=== PATIENT | female | born 1960 | race Caucasian/White ===

== ENCOUNTER → 2016-12-28 | Outpatient (CLI) | payer BC ==
[~2016-12-28] MED LIST: BENGAY ULTRA S113 GM TP; CIPRO500 MG PO; DOCUSATE SODIU100 MG PO; EXCEDRIN EXTRA1 EACH PO; HYDROCODON-ACE1 EAC7 PO; MACRODANTIN50 M1 PO; OXYCODONE HCL5 MG PO; TAMSULOSIN HCL0.4 MG PO; URIBEL CAPSULE1 EACH PO
[2016-12-28 09:19] LABS: HEMATOCRIT 41.5 % (36.0-46.0); MCH 28.2 PG (29.0-34.0); MCHC 32.8 G/DL (30.0-36.0); MCV 86.1 FL (83-99); MEAN PLAT.VOLUME 10.3 uM^3 (9.5-12.4); PLATELET COUNT 251 K/uL (156-360); RBC DIS.WIDTH-CV 13.2 % (11.8-14.6); RBC DIS.WIDTH-SD 41.1 % (39-53); RED BLOOD COUNT 4.82 M/uL (3.80-5.20); WHITE BLOOD COUNT 5.1 K/uL (4.1-10.2)
[2016-12-28 09:37] LABS: INTER. NORMALIZED RATIO 1.1; PROTHROMBIN TIME 10.7 (9.2-11.2); PTT 26.9 (25-32)
== END | disposition home or self-care (01) ==
LOC: OPR 08:18 → EDSTATUS 09:00
PROVIDERS: Urology
PROC: 0TB03ZX Excision of Right Kidney, Percutaneous Approach, Diagnostic (ICD-10-PCS; principal; 2016-12-28)
DX: C64.1 Malignant neoplasm of right kidney, except renal pelvis (principal); Z80.0 Family history of malignant neoplasm of digestive organs
CPT/HCPCS: 77012; 85027; 85610; 85730; 88305; J2405; J3010

== ENCOUNTER 2017-03-19 05:37 | Inpatient (IN) | payer BC ==
[~2017-03-19] VITALS: Ht 160 cm; Wt 70.9 kg
[2017-03-19 06:30] VITALS: BP 167/79
[2017-03-19 16:19] VITALS: BP 117/57
[2017-03-19 23:23] VITALS: BP 121/69
[2017-03-20 04:00] VITALS: BP 120/59
[2017-03-20 07:06] LABS: HEMATOCRIT 32.9 % (36.0-46.0); MCH 29.3 PG (29.0-34.0); MCHC 32.5 G/DL (30.0-36.0); MCV 90.1 FL (83-99); PLATELET COUNT 234 K/uL (156-360); RBC DIS.WIDTH-CV 13.7 % (11.8-14.6); RBC DIS.WIDTH-SD 45.1 % (39-53); WHITE BLOOD COUNT 13.8 K/uL (4.1-10.2)
[2017-03-20 07:07] LABS: RED BLOOD COUNT 3.65 M/uL (3.80-5.20)
[2017-03-20 07:36] LABS: ANION GAP 11 MEQ/L (2-14); CHLORIDE 105 MEQ/L (99-109); GFR ESTIMATE (CALCULATED) > 59 mL/min/; GLUCOSE 99 mg/dL (70-99); POTASSIUM 4.5 MEQ/L (3.7-5.4); SAMPLE HEMOLYSIS CHECK 0; SAMPLE ICTERIC CHECK 0; SAMPLE LIPEMIA CHECK 0; SODIUM 140 MEQ/L (136-147); UREA NITROGEN (BUN) 15 mg/dL (9-23)
[2017-03-20 07:58] VITALS: BP 108/55
[2017-03-20 16:14] VITALS: BP 124/60
[2017-03-20 19:40] VITALS: BP 133/61
[2017-03-20 23:38] VITALS: BP 119/67
[2017-03-21 03:45] VITALS: BP 142/62
[2017-03-21 08:13] VITALS: BP 119/68
[2017-03-21 17:55] VITALS: BP 131/70
[2017-03-21 19:20] VITALS: BP 132/69
[2017-03-21 23:46] VITALS: BP 132/63
[2017-03-22 03:36] VITALS: BP 129/61
[2017-03-22 07:53] VITALS: BP 137/71
[2017-03-22] MEDS ORDERED: OXAYDO5 MG PO (15:36)
[2017-03-22 16:46] VITALS: BP 156/74
== END 2017-03-22 17:06 | disposition home or self-care (01) | DRG 657 ==
LOC: 2SOUTH 05:37 → 5EAST 12:48 → 2SOUTH 13:44 → 5EAST 03-22 17:06
PROVIDERS: Urology
PROC: 0TT00ZZ Resection of Right Kidney, Open Approach (ICD-10-PCS; principal; 2017-03-19)
DX: C64.1 Malignant neoplasm of right kidney, except renal pelvis (principal); N13.39 Other hydronephrosis; N28.1 Cyst of kidney, acquired; Z87.442 Personal history of urinary calculi; R14.0 Abdominal distension (gaseous); Z87.440 Personal history of urinary (tract) infections; Z80.0 Family history of malignant neoplasm of digestive organs
CPT/HCPCS: 80048; 85027; 88305; 88307; 93005; J0692; J1100; J1170; J1885; J2250; J2405; J2710; J3010; J7050; J7120